=== PATIENT | female | born 1985 | race Caucasian/White ===

== ENCOUNTER 2017-12-19 08:58 | Emergency (ER) | payer BC ==
[2017-12-19] MEDS ORDERED: NS 1,000 ML IV ONE (09:43)
[2017-12-19] MEDS ORDERED: LORazepam 2 MG/ML INJ IVP ONE (09:44)
--- NOTE | 2017-12-19 09:46 | EDPHY ---
H & P Stated Complaint: pt awakened today with sob and dizzyness Time Seen by Provider: 12/19/17 09:13 HPI/ROS: CHIEF COMPLAINT: Dyspnea, fatigue, nausea HISTORY OF PRESENT ILLNESS: The patient presents to the ED with multiple complaints that began after waking up today which include dyspnea, fatigue and nausea. The patient reportedly recently had a long plane flight from [place]. She denies any asymmetric calf pain or swelling. She does endorse symptoms of slight pleurisy and dyspnea. She also complains of nausea and presyncope. She denies any abdominal pain, vomiting or diarrhea. She does have a history of anxiety and has not had her usual medications this morning. The patient denies any additional acute neurologic complaints. REVIEW OF SYSTEMS: A comprehensive 10 point review of systems is otherwise negative aside from elements mentioned in the history of present illness. Source: Patient Exam Limitations: No limitations - Personal History LMP (Females 10-55): 1-7 Days Ago Current Tetanus Diphtheria and Acellular Pertussis (TDAP): Yes - Medical/Surgical History Hx Asthma: No Hx Chronic Respiratory Disease: No Hx Diabetes: No Hx Cardiac Disease: No Hx Renal Disease: No Hx Cirrhosis: No Hx Alcoholism: No Hx HIV/AIDS: No Hx Splenectomy or Spleen Trauma: No Other PMH: Past medical history: Anxiety - Social History Smoking Status: Never smoked - Physical Exam Exam: General Appearance: Alert, no acute distress Eyes: Pupils equal and round no pallor or injection ENT, Mouth: Mucous membranes moist Respiratory: There are no retractions, lungs are clear to auscultation Cardiovascular: Regular rate and rhythm Gastrointestinal: Abdomen is soft and nontender, no masses, bowel sounds normal Neurological: 5/5 strength all 4 extremities Skin: Warm and dry, no rashes Musculoskeletal: Neck is supple nontender Extremities: symmetrical, full range of motion Constitutional: Initial Vital Signs Temperature (C) 37.1 C 12/19/17 09:02 Heart Rate 84 12/19/17 09:02 Respiratory Rate 20 12/19/17 09:02 Blood Pressure 108/75 12/19/17 09:02 O2 Sat (%) 97 12/19/17 09:02 O2 Delivery Mode Room Air Allergies/Adverse Reactions: No Known Allergies Allergy (Unverified 12/19/17 09:02) Home Medications: Medication Instructions Recorded Trintellix 12/19/17 Wellbutrin 100mg (*) 12/19/17 Medical Decision Making - Diagnostics EKG Interpretation: EKG: Complete interpretation has been separately recorded in the [facility] archive. Summary impression: Sinus rhythm, rate 76 Imaging Results: Imaging Impressions Chest/Thorax CTA 12/19/17 10:04 Impression: There is no CT evidence for pulmonary artery thrombo-embolic disease. Findings were discussed with Te Ramirez MD at 10:53, on 12/19/2017. ED Course/Re-evaluation: ED course: The patient presents to the ED for evaluation of pleuritic chest pain in the setting of a recent long plane flight. The patient has no risk factors for thromboembolic disease. A screening D-dimer was abnormal. A CT pulmonary angiogram failed to demonstrate any evidence of PE. Additionally the patient has had some symptoms of fatigue and malaise. She has no evidence of a critical anemia or significant metabolic derangement. The patient did appear to be somewhat anxious on my initial exam. She received 1 mg of IV Ativan as she had not had a regular medications for anxiety today. The patient was monitored here in the emergency department without hypotension or arrhythmia. At this point time I see no evidence of an obvious metabolic condition, cardiac condition or thromboembolic event. I have encouraged the patient to increase her fluid hydration today as mild dehydration and anxiety may be contributing to her symptoms today. The patient has been provided the contact information of our on-call primary care provider. Re-examination at noon demonstrates no evidence acute abdomen. She is hemodynamically stable without evidence of fever. She is neurologically intact. The patient will be discharged home with customary aftercare instructions and return precautions. Differential Diagnosis: Differential diagnosis considered includes pulmonary embolism, anemia, dehydration, metabolic derangement, anxiety, arrhythmia - Data Points Laboratory Results: Laboratory Results 12/19/17 09:13 12/19/17 09:13 12/19/17 12/19/17 12/19/17 09:13 09:13 09:13 WBC 24.64 10^3/uL H 10^3/uL (3.80-9.50) RBC 4.68 10^6/uL 10^6/uL (4.18-5.33) Hgb 14.0 g/dL g/dL (12.6-16.3) Hct 42.7 % % (38.0-47.0) MCV 91.2 fL fL (81.5-99.8) MCH 29.9 pg pg (27.9-34.1) MCHC 32.8 g/dL g/dL (32.4-36.7) RDW 12.0 % % (11.5-15.2) Plt Count 313 10^3/uL 10^3/uL (150-400) MPV 10.0 fL fL (8.7-11.7) Neut % (Auto) Not Reported Lymph % (Auto) Not Reported [place] % (Auto) Not Reported Eos % (Auto) Not Reported Baso % (Auto) Not Reported Nucleat RBC Rel Count Not Reported Absolute Neuts (auto) Not Reported Absolute Lymphs (auto) Not Reported Absolute Monos (auto) Not Reported Absolute Eos (auto) Not Reported Absolute Basos (auto) Not Reported Absolute Nucleated RBC Not Reported Immature Gran % Not Reported Seg Neutrophils % 89.0 % % Band Neutrophils % 0.0 % % Lymphocytes % 7.0 % % Monocytes % 4.0 % % Eosinophils % 0.0 % % Basophils % 0.0 % % Metamyelocytes % 0.0 % % Myelocytes % 0.0 % % Promyelocytes % 0.0 % % Blast Cells % 0.0 % % Immature Gran # Not Reported Absolute Seg Neuts 21.93 10^3/uL H 10^3/uL (1.70-6.50) Absolute Band Neuts 0.00 10^3/uL 10^3/uL (0.00-0.70) Absolute Lymphocytes 1.72 10^3/uL 10^3/uL (1.00-3.00) Absolute Monocytes 0.99 10^3/uL H 10^3/uL (0.30-0.80) Absolute Eosinophils 0.00 10^3/uL L 10^3/uL (0.03-0.40) Absolute Basophils 0.00 10^3/uL L 10^3/uL (0.02-0.10) Absolute Metamyelocyte 0.00 10^3/mL 10^3/mL (0.00-0.00) Absolute Myelocytes 0.00 10^3/mL 10^3/mL (0.00-0.00) Absolute Promyelocytes 0.00 10^3/uL 10^3/uL (0.00-0.00) Absolute Plasma Cells 0.00 10^3/uL 10^3/uL (0.00-0.00) Nucleated RBCs 0 /100 WBC /100 WBC (0-0) Absolute Blast Cells 0.00 10^3/uL 10^3/uL (0.00-0.00) Plasma Cells % 0.0 % % Platelet Estimate ADEQUATE (ADEQ) D-Dimer 0.62 ug/mLFEU H ug/mLFEU (0.00-0.50) Sodium 141 mEq/L mEq/L (135-145) Potassium 3.9 mEq/L mEq/L (3.3-5.0) Chloride 102 mEq/L mEq/L (97-110) Carbon Dioxide 27 mEq/l mEq/l (22-31) Anion Gap 12 mEq/L mEq/L (6-14) BUN 10 mg/dL mg/dL (7-23) Creatinine 0.8 mg/dL mg/dL (0.6-1.0) Estimated GFR > 60 Glucose 105 mg/dL H mg/dL (70-100) Calcium 9.6 mg/dL mg/dL (8.5-10.4) Troponin I < 0.012 ng/mL ng/mL (0.000-0.034) Medications Given: Discontinued Medications Sodium Chloride (Ns) 1,000 mls @ 0 mls/hr IV ONCE ONE; Wide Open PRN Reason: Protocol Stop: 12/19/17 09:44 Last Admin: 12/19/17 09:52 Dose: 1,000 mls Lorazepam (Ativan Injection) 1 mg IVP EDNOW ONE Stop: 12/19/17 09:45 Last Admin: 12/19/17 09:52 Dose: 1 mg Departure - Departure Disposition: Home, Routine, Self-Care Clinical Impression: Pleurisy, Dehydration Condition: Good Instructions: Pleurisy (ED) Additional Instructions: 1. Your EKG, CT scan and laboratory testing are normal. 2. Take Ibuprofen or Motrin 600 mg by mouth three times a day. 3. Please try and increase your fluid intake today as mild dehydration may have contributed to your symptoms today. 4. You have been given the contact number of our on-call primary care provider. 5. Please return to the ED immediately for markedly worsening symptoms, high fever, abdominal pain or other concerns. Referrals: Mayte Bazzi MD [[facility] Primary Care Provider] - As per Instructions
--- NOTE | 2017-12-19 09:52 | CPEKG ---
Test Reason : OPEN Blood Pressure : / mmHG Vent. Rate : 076 BPM Atrial Rate : 078 BPM P-R Int : 165 ms QRS Dur : 088 ms QT Int : 373 ms P-R-T Axes : 046 053 029 degrees QTc Int : 420 ms Sinus rhythm Confirmed by Te Ramirez ([id number]) on 12/19/2017 9:51:51 AM Referred By: Confirmed By:Te Ramirez
[2017-12-19 09:54] LABS: PLATELET COUNT 313 10^3/uL (150-400)
[2017-12-19] MEDS ORDERED: IOPAMIDOL (ISOVUE 370) 100 ML BTL IV ONE (10:16)
[2017-12-19 12:00] VITALS: BP 129/76
== END 2017-12-19 11:58 | disposition home or self-care (01) ==
DX: R09.1 Pleurisy (principal); E86.9 Volume depletion, unspecified; R53.83 Other fatigue; R11.0 Nausea; F41.9 Anxiety disorder, unspecified
CPT/HCPCS: 96374; J2060; Q9967